=== PATIENT | female | born 1990 | race Caucasian/White ===

== ENCOUNTER 2018-12-28 11:51 | Inpatient (IN) | payer BC ==
[~2018-12-28 11:51] MED LIST: Bupivacaine 0.25% HCL 30 ML VIAL ONE
[2018-12-28 13:09] VITALS: BMI 24.8
[2018-12-28] MEDS ORDERED: Acetaminophen/Codeine 30-300mg Tablet PO PRN ×2 (13:20)
[2018-12-28] MEDS ORDERED: Misoprostol 200 MCG TAB PR PRN (13:20)
[2018-12-28] MEDS ORDERED: Lidocaine 1% (PF) 30 ML VIAL SC PRN (13:20)
[2018-12-28] MEDS ORDERED: NS / Oxytocin 40 units/1000ml 1,000 ML IV PRN (13:20)
[2018-12-28] MEDS: Lactated Ringer's 1,000 ML IV SCH ×4 (13:20→21:43)
[2018-12-28] MEDS ORDERED: Ibuprofen 800 MG TAB PO PRN (13:20)
[2018-12-28] MEDS ORDERED: Acetaminophen 500 MG TAB PO PRN (13:21)
[2018-12-28] MEDS ORDERED: hydrALAZINE 20 MG/ML VIAL SLOW IVP PRN (13:21)
[2018-12-28] MEDS ORDERED: Butorphanol Tartrate 1 MG/ML VIAL SLOW IVP PRN (13:21)
[2018-12-28] MEDS ORDERED: Promethazine HCl 25 MG/ML VIAL IM PRN ×2 (13:21→15:04)
[2018-12-28] MEDS ORDERED: NS w/ Oxytocin 10 units 500 ML IV SCH (13:30)
[2018-12-28 13:53] LABS: Hemoglobin 13.2 g/dL (12.0-16.0); Mean Corpuscular HGB CONC 34.2 g/dL (32.0-36.0); Mean Corpuscular Hemoglobin 31.6 pg (27.0-31.0); Mean Corpuscular Volume 92.4 fL (78.0-98.0); Mean Platelet Volume 9.9 fL (7.4-10.4); Platelet Count 123 thou/uL (130-400); RBC Distribution Width 12.5 % (11.5-14.5); Red Blood Cell (RBC) Count 4.18 mill/uL (4.20-5.40); White Blood Cell (WBC) Count 15.9 thou/uL (4.8-10.8)
[2018-12-28] MEDS ORDERED: ePHEDrine/0.9% NaCl/PF SYRINGE 50 mg/10 ml ONE (14:06)
[2018-12-28] MEDS ORDERED: Fentanyl 4 mcg/Bup 0.1% Cadd 100 ML ONE ×2 (14:06→21:05)
[2018-12-28 14:26] LABS: Syphilis Antibody Nonreactive (Nonreactive); Syphilis Antibody Index 0.07 S/CO (<1.00 Non-Reactive)
[2018-12-28 14:27] LABS: HBSAg Index 0.13 S/CO (0-0.99); Hep B Surf Ag Non-Reactive S/CO (NonReactive)
[2018-12-28] MEDS ORDERED: Naloxone HCl 0.4 mg/ml Vial IVP PRN ×2 (15:04)
[2018-12-28] MEDS ORDERED: Ondansetron PF 4 MG/2 ML Vial IVP PRN (15:04)
[2018-12-28] MEDS ORDERED: Acetaminophen 325 MG TAB PO PRN (15:04)
[2018-12-28] MEDS ORDERED: diphenhydrAMINE 50 MG/ML VIAL IVP PRN (15:04)
[2018-12-28] MEDS ORDERED: Lactated Ringer's 500 ML IV PRN (15:04)
[2018-12-28] MEDS ORDERED: ePHEDrine/0.9% NaCl/PF SYRINGE 50 mg/10 ml SLOW IVP PRN (15:04)
[2018-12-28] MEDS ORDERED: Communication Order-Pharmacy FS SCH (15:15)
[2018-12-28] MEDS ORDERED: Fentanyl 4 mcg/Bupivacaine 0.1% Cassette 100 ML EPIDURAL SCH (15:15)
[2018-12-28] MEDS: Ondansetron PF 4 MG/2 ML Vial IVP PRN (18:43)
[2018-12-28] MEDS ORDERED: FLU VACC QS2019-20(6MOS UP)/PF 60 MCG/0.5 ML SYRINGE IM ONE (21:00)
[2018-12-29] MEDS: Ondansetron PF 4 MG/2 ML Vial IVP PRN (00:37)
[2018-12-29] MEDS: Ibuprofen 800 MG TAB PO SCH ×3 (03:58→21:35)
[2018-12-29] MEDS ORDERED: Benzocaine-Menthol 82.5 ML CAN TOP PRN (08:14)
[2018-12-29] MEDS: Docusate Calcium (SURFAK) 240 MG CAP PO SCH ×2 (08:50→21:35)
[2018-12-29] MEDS: Prenatal Vitamin 1 TAB PO SCH (08:50)
[2018-12-30] MEDS: Ibuprofen 800 MG TAB PO SCH (06:28)
[2018-12-30] MEDS: Docusate Calcium (SURFAK) 240 MG CAP PO SCH (08:25)
[2018-12-30] MEDS: Prenatal Vitamin 1 TAB PO SCH (08:25)
[2018-12-30 09:34] VITALS: BP 112/74; TEMP 98.5
== END 2018-12-30 12:40 | disposition home or self-care (01) | DRG 807 ==
LOC: L&D/OP 11:51 → L&D 13:14 → 3SW 12-29 02:28
PROVIDERS: ADMIT Obstetrics & Gynecology; ATTEND Obstetrics & Gynecology
PROC: 10E0XZZ Delivery of Products of Conception, External Approach (ICD-10-PCS; principal; 2018-12-28)
PROC: 10907ZC Drainage of Amniotic Fluid, Therapeutic from Products of Conception, Via Natural or Artificial Opening (ICD-10-PCS; 2018-12-28)
PROC: 3E0P7VZ Introduction of Hormone into Female Reproductive, Via Natural or Artificial Opening (ICD-10-PCS; 2018-12-28)
PROC: 3E033VJ Introduction of Other Hormone into Peripheral Vein, Percutaneous Approach (ICD-10-PCS; 2018-12-28)
PROC: 0HQ9XZZ Repair Perineum Skin, External Approach (ICD-10-PCS; 2018-12-28)
PROC: 3E02340 Introduction of Influenza Vaccine into Muscle, Percutaneous Approach (ICD-10-PCS; 2018-12-28)
DX: O70.0 First degree perineal laceration during delivery (principal); Z37.0 Single live birth; Z3A.38 38 weeks gestation of pregnancy; Z23 Encounter for immunization; Z88.0 Allergy status to penicillin; Z88.1 Allergy status to other antibiotic agents
CPT/HCPCS: 36415; 85027; 86780; 86850; 86900; 86901; 87340; J2405; S0020